=== PATIENT | female | born 1990 | race African-American/Black ===

== ENCOUNTER 2023-03-18 14:58 | Emergency (ER) | payer OTHER, BC, SELFPAY ==
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
[2023-03-18 15:02] VITALS: BP 154/82; PULSE 90; RESP 20; TEMP 37; O2SAT 100
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
== END 2023-03-18 18:57 | disposition home or self-care (01) ==
PROVIDERS: Emergency Provider Nurse Practitioner Family
DX: S16.1XXA Strain of muscle, fascia and tendon at neck level, initial encounter (principal); R07.89 Other chest pain; S93.492A Sprain of other ligament of left ankle, initial encounter; S83.8X2A Sprain of other specified parts of left knee, initial encounter; V43.62XA Car passenger injured in collision with other type car in traffic accident, initial encounter
CPT/HCPCS: 71046; 72040; 73562; 73610; 81025; 99284